=== PATIENT | female | born 1935 | race African-American/Black ===

== ENCOUNTER 2020-10-09 13:15 | Emergency (ER) | payer MEDICARE ==
[~2020-10-09] VITALS: Ht 157.5 cm; Wt 65.3 kg
[2020-10-09 13:35] VITALS: Ht 157.5 cm; Wt 65.3 kg
[2020-10-09 16:58] LABS: microscopic required? NO
[2020-10-09 17:21] LABS: urine erythrocyte NEGATIVE (NEGATIVE)
[2020-10-09 17:35] LABS: BASOPHIL % 0.3 % (0-2); PLATELET COUNT 310 x10^3mcL (130-400); RED CELL DISTRIBUTION WIDTH 14.4 % (11.5-14.5)
[2020-10-09 17:37] LABS: AMPHETAMINE QUAL UR NONE DETECTED (See below)
[2020-10-09 17:59] LABS: CALCIUM 8.9 mg/dL (8.5-10.1); CARBON DIOXIDE 28.8 mmol/L (21-32); CHLORIDE SERUM 102 mmol/L (98-107); CREATININE SERUM 2.2 mg/dL (0.6-1.0); GLUCOSE SERUM 106 mg/dL (74-106); POTASSIUM SERUM 3.5 mmol/L (3.5-5.1); SODIUM SERUM 141 mmol/L (136-145)
[2020-10-09 18:11] LABS: ALKALINE PHOSPHATASE 44 U/L (46-116); ALT/SGPT 17 U/L (14-59); AST/SGOT 18 U/L (15-37); BILIRUBIN TOTAL 0.34 mg/dL (0.20-1.00); CHOLESTEROL 141 mg/dL (<200); HDL CHOLESTEROL 51 mg/dL (40-60); LIPASE 108 IU/L (73-393); T4(THYROXINE) 5.9 ug/dL (4.7-13.3); TOTAL PROTEIN, SERUM 7.2 g/dL (6.4-8.2)
[2020-10-09 18:14] LABS: ALBUMIN 3.1 g/dL (3.4-5.0)
[2020-10-09 18:18] LABS: MAGNESIUM 4.2 mg/dL (1.8-2.4)
[2020-10-09 20:05] VITALS: BP 135/71
== END 2020-10-09 20:05 ==
LOC: ED 13:15
PROVIDERS: Emergency Medicine
DX: G93.41 Metabolic encephalopathy (principal); T46.1X5A Adverse effect of calcium-channel blockers, initial encounter; I12.9 Hypertensive chronic kidney disease with stage 1 through stage 4 chronic kidney disease, or unspecified chronic kidney disease; N18.4 Chronic kidney disease, stage 4 (severe); K21.9 Gastro-esophageal reflux disease without esophagitis; E78.00 Pure hypercholesterolemia, unspecified; G30.9 Alzheimer's disease, unspecified; F02.81 Dementia in other diseases classified elsewhere, unspecified severity, with behavioral disturbance; H40.10X0 Unspecified open-angle glaucoma, stage unspecified; E04.9 Nontoxic goiter, unspecified; M54.16 Radiculopathy, lumbar region; Z88.8 Allergy status to other drugs, medicaments and biological substances; Z20.828 Contact with and (suspected) exposure to other viral communicable diseases; Y92.89 Other specified places as the place of occurrence of the external cause
CPT/HCPCS: 82962; 83880; G0480; J1630; J2060; J3411; J3475; J7030